=== PATIENT | female | born 2000 | race Caucasian/White ===

== ENCOUNTER 2023-05-22 14:00 | Emergency (ER) | payer OTHER ==
[~2023-05-22] VITALS: Ht 172.7 cm; Wt 72.6 kg
[2023-05-22] MEDS ORDERED: CYCL5TAB PO (16:33)
[2023-05-22] MEDS ORDERED: KETO10TA2 PO (16:33)
[2023-05-22 16:41] VITALS: BP 112/72; TEMP 98.5; O2SAT 98
== END 2023-05-22 16:42 | disposition home or self-care (01) ==
LOC: ER 14:08
DX: S13.4XXA Sprain of ligaments of cervical spine, initial encounter (principal); G44.309 Post-traumatic headache, unspecified, not intractable; F07.81 Postconcussional syndrome; H53.71 Glare sensitivity; M54.2 Cervicalgia; V89.2XXA Person injured in unspecified motor-vehicle accident, traffic, initial encounter; Y93.89 Activity, other specified; Y92.89 Other specified places as the place of occurrence of the external cause; Y99.8 Other external cause status; Z88.0 Allergy status to penicillin
CPT/HCPCS: 70450-TC; 72125-TC

== ENCOUNTER 2024-10-31 19:25 | Emergency (ER) | payer OTHER ==
[~2024-10-31] VITALS: Ht 175.3 cm; Wt 77.1 kg
[~2024-10-31 19:25] MED LIST: CYCL5TAB PO; KETO10TA2 PO
[2024-10-31] MEDS ORDERED: HALOPERIDOL LACTATE INJ 5 MG/ML VIAL ONE ×2 (19:56→23:57)
[2024-10-31] MEDS ORDERED: METOCLOPRAMIDE HCL 10 MG/2 ML VIAL ONE (19:56)
[2024-10-31] MEDS: METOCLOPRAMIDE HCL 10 MG/2 ML VIAL IV ONE (20:04)
[2024-10-31] MEDS: HALOPERIDOL LACTATE INJ 5 MG/ML VIAL IM ONE (20:04)
[2024-10-31] MEDS: IV NS 0.9% 1,000 ML BAG IV ONE (20:04)
[2024-10-31 20:12] LABS: PLATELET COUNT (AUTO) 264 K/uL (150-450); RED BLOOD CELL COUNT(AUTO) 4.41 MIL/uL (4.0-5.2); RED CELL DISTRIBUTION WIDTH 12.6 % (11.5-15.0); WHITE BLOOD COUNT (AUTO) 11.0 K/uL (4.3-11.0)
[2024-10-31 20:23] LABS: CALCIUM, SERUM 9.7 mg/dL (8.5-10.1); CREATININE 0.9 mg/dL (0.6-1.3); SODIUM SERUM 139.0 mmol/L (136-145); UREA NITROGEN, BLOOD 13.0 mg/dL (7-18)
[2024-10-31 20:28] LABS: ASPARTATE AMINOTRANSFERASE 18.0 U/L (15-37); TOTAL PROTEIN, SERUM 8.0 g/dL (6.4-8.2)
[2024-10-31] MEDS ORDERED: ONDA4TAB5 PO (22:19)
[2024-10-31] MEDS ORDERED: FAMO20TA8 PO (22:19)
[2024-10-31] MEDS ORDERED: PANT40TA49 PO (22:19)
[2024-10-31] MEDS ORDERED: SUCR1TAB31 PO (22:19)
[2024-10-31] MEDS ORDERED: PANTOPRAZOLE 40 MG VIAL ONE (22:31)
[2024-10-31] MEDS ORDERED: FAMOTIDINE/PF INJ 20 MG/2 ML VIAL IV ONE (22:32)
[2024-10-31] MEDS: FAMOTIDINE/PF INJ 20 MG/2 ML VIAL IV ONE (22:41)
[2024-10-31] MEDS: PANTOPRAZOLE 40 MG VIAL IV ONE (22:41)
[2024-10-31] MEDS ORDERED: ONDANSETRON HCL/PF 4 MG/2 ML VIAL ONE (23:57)
[2024-11-01] MEDS: ONDANSETRON HCL/PF 4 MG/2 ML VIAL IV ONE (00:04)
[2024-11-01] MEDS: HALOPERIDOL LACTATE INJ 5 MG/ML VIAL IV ONE (00:04)
[2024-11-01 05:11] VITALS: BP 125/80; TEMP 98; O2SAT 100
[2024-11-02] MEDS ORDERED: DICY10CA37 PO (10:36)
[2024-11-02] MEDS ORDERED: ESCI20TA PO (12:54)
== END 2024-11-01 05:12 | disposition home or self-care (01) ==
LOC: ER 19:29
DX: R11.2 Nausea with vomiting, unspecified (principal); R07.9 Chest pain, unspecified; R06.02 Shortness of breath; E87.6 Hypokalemia; Z88.0 Allergy status to penicillin; Z87.19 Personal history of other diseases of the digestive system
CPT/HCPCS: 99285; 96374; 96375 ×2; 71045; 96361; 96372; 93005; 85025; 36415; 80053; J1630 ×2; J1308; J2765; J2470; J1200; J2405

== ENCOUNTER 2024-11-02 09:13 | Inpatient (IN) | payer OTHER ==
[~2024-11-02] VITALS: Ht 172.7 cm; Wt 85.8 kg
[~2024-11-02 09:13] MED LIST changes: +FAMO20TA8 PO; +ONDA4TAB5 PO; +PANT40TA49 PO; +SUCR1TAB31 PO
[2024-11-02] MEDS ORDERED: HALOPERIDOL LACTATE INJ 5 MG/ML VIAL ONE (09:47)
[2024-11-02] MEDS ORDERED: DICYCLOMINE HCL INJ 20 MG/2 ML AMPUL IM ONE (09:47)
[2024-11-02] MEDS ORDERED: METOCLOPRAMIDE HCL 10 MG/2 ML VIAL ONE (09:47)
[2024-11-02] MEDS ORDERED: FAMOTIDINE/PF INJ 20 MG/2 ML VIAL IV ONE (09:47)
[2024-11-02] MEDS: DICYCLOMINE HCL INJ 20 MG/2 ML AMPUL IM ONE (10:05)
[2024-11-02] MEDS: HALOPERIDOL LACTATE INJ 5 MG/ML VIAL IM ONE ×2 (10:06→20:38)
[2024-11-02] MEDS: FAMOTIDINE/PF INJ 20 MG/2 ML VIAL IV ONE (10:06)
[2024-11-02] MEDS: METOCLOPRAMIDE HCL 10 MG/2 ML VIAL IV ONE ×2 (10:06→20:35)
[2024-11-02 10:07] LABS: PREGNANCY TEST URINE QUAL NEGATIVE (NEGATIVE)
[2024-11-02] MEDS: IV NS 0.9% 1,000 ML BAG IV ONE ×2 (10:07→11:17)
[2024-11-02 10:16] LABS: APPEARANCE,URINE CLOUDY (CLEAR); BLOOD, URINE Trace-intact Ery/uL (NEGATIVE); LEUKOCYTE ESTERASE ,URINE Small (NEGATIVE); UGLUCOSE Negative (NEGATIVE)
[2024-11-02 10:16] LABS: ASPARTATE AMINOTRANSFERASE 13.0 U/L (15-37); CALCIUM, SERUM 8.8 mg/dL (8.5-10.1); CREATININE 0.6 mg/dL (0.6-1.3); SODIUM SERUM 138.0 mmol/L (136-145); TOTAL PROTEIN, SERUM 8.0 g/dL (6.4-8.2); UREA NITROGEN, BLOOD 11.0 mg/dL (7-18)
[2024-11-02 10:17] LABS: NITRITE, URINE NEGATIVE (NEGATIVE)
[2024-11-02 10:20] LABS: AMPHETAMINE, URINE NEGATIVE (NEGATIVE); BARBITURATE, URINE NEGATIVE (NEGATIVE); BENZODIAZEPINE, URINE NEGATIVE (NEGATIVE); COCCAINE, URINE NEGATIVE (NEGATIVE); OPIATE, URINE NEGATIVE (NEGATIVE)
[2024-11-02 10:24] LABS: PLATELET COUNT (AUTO) 269 K/uL (150-450); RED BLOOD CELL COUNT(AUTO) 4.44 MIL/uL (4.0-5.2); RED CELL DISTRIBUTION WIDTH 12.7 % (11.5-15.0); WHITE BLOOD COUNT (AUTO) 10.8 K/uL (4.3-11.0)
[2024-11-02 10:25] LABS: CANNABINOID, URINE POSITIVE (NEGATIVE)
[2024-11-02 10:32] LABS: ADD URINE CULTURE YES
[2024-11-02] MEDS ORDERED: DICY10CA37 PO (10:36)
[2024-11-02] MEDS ORDERED: ONDANSETRON HCL/PF 4 MG/2 ML VIAL ONE (11:15)
[2024-11-02] MEDS: ONDANSETRON HCL/PF 4 MG/2 ML VIAL IV ONE (11:17)
[2024-11-02] MEDS ORDERED: ESCI20TA PO (12:54)
[2024-11-02] MEDS ORDERED: ACETAMINOPHEN 325 MG TABLET PO PRN (14:30)
[2024-11-02 14:40] VITALS: BP 132/78; TEMP 98.2; O2SAT 100
[2024-11-02] MEDS: IV D5/0.45 NACL 1,000 ML IV PRN (14:43)
[2024-11-02] MEDS: POTASSIUM CL. PREMIX PERIPHER. 50 ML IV SCH (14:44)
[2024-11-02 16:20] VITALS: BP 129/76; TEMP 97.7; O2SAT 97
[2024-11-02] MEDS: ONDANSETRON HCL/PF 4 MG/2 ML VIAL IVP PRN (18:28)
[2024-11-02 20:00] VITALS: BP 142/86; TEMP 97.7; O2SAT 97
[2024-11-03 07:24] LABS: PLATELET COUNT (AUTO) 231 K/uL (150-450); RED BLOOD CELL COUNT(AUTO) 4.02 MIL/uL (4.0-5.2); RED CELL DISTRIBUTION WIDTH 12.6 % (11.5-15.0); WHITE BLOOD COUNT (AUTO) 7.5 K/uL (4.3-11.0)
[2024-11-03 07:43] LABS: CALCIUM, SERUM 9.0 mg/dL (8.5-10.1); CREATININE 0.8 mg/dL (0.6-1.3); PHOSPHORUS 2.3 mg/dL (2.5-4.9); SODIUM SERUM 142.0 mmol/L (136-145); UREA NITROGEN, BLOOD 7.0 mg/dL (7-18)
[2024-11-03 08:00] VITALS: BP 112/77; TEMP 98.1; O2SAT 96
[2024-11-03] MEDS: PANTOPRAZOLE 40 MG VIAL IV SCH (08:13)
[2024-11-03] MEDS: ESCITALOPRAM OXALATE (10 MG) 10 MG TABLET PO SCH (08:13)
[2024-11-03] MEDS: POTASSIUM CHLORIDE 20 MEQ TAB.PRT.SR PO SCH (10:27)
[2024-11-03] MEDS: METOCLOPRAMIDE HCL 10 MG/2 ML VIAL IV PRN (11:58)
[2024-11-03] MEDS ORDERED: K PHOS NEUTRAL 250 MG TABLET PO ONE (16:00)
== END 2024-11-03 12:50 | disposition left against medical advice (07) | DRG 395 ==
LOC: ER 09:16 → MED 13:35
PROVIDERS: ATTEND Student in an Organized Health Care Education/Training Program
DX: R11.15 Cyclical vomiting syndrome unrelated to migraine (principal); E87.6 Hypokalemia; K90.0 Celiac disease; Z88.0 Allergy status to penicillin
CPT/HCPCS: 36415; 80048-TC; 80076-TC; 81001; 83690-TC; 83735-TC; 84100-TC; 84703-TC; 85025-TC; 87086-TC; A4223; G0378; G0480; J0500; J1200; J1308; J1630; J2405; J2470; J2765; J3480; J3490; J7030